=== PATIENT | female | born 1980 ===

== ENCOUNTER 2017-09-23 12:30 | Inpatient (IN) | payer OTHER ==
[~2017-09-23] VITALS: Ht 162.6 cm; Wt 76.2 kg
[2017-09-26] MEDS ORDERED: PERCOCET 5-3251 EACH PO (12:25)
[2017-09-26] MEDS ORDERED: AMOX1TAB12 PO (12:25)
[2017-09-26] MEDS ORDERED: COLACE100 MG PO (12:25)
[2017-09-26] MEDS ORDERED: NEURONTIN800 MG PO (12:25)
[2017-09-26] MEDS ORDERED: CLONAZEPAM1 MG PO (12:25)
== END 2017-09-27 14:47 | disposition home or self-care (01) | DRG 455 ==
LOC: O/R 09-26 05:45 → SURG 09-26 05:45 → SURH 09-26 12:30 → SURG 09-26 12:49 → SURH 09-26 16:00 → SURG 09-27 14:47
PROVIDERS: Orthopaedic Surgery Orthopaedic Surgery of the Spine
PROC: 0SG1071 Fusion of 2 or more Lumbar Vertebral Joints with Autologous Tissue Substitute, Posterior Approach, Posterior Column, Open Approach (ICD-10-PCS; 2017-09-26)
PROC: 0ST20ZZ Resection of Lumbar Vertebral Disc, Open Approach (ICD-10-PCS; 2017-09-26)
PROC: 0SG10AJ Fusion of 2 or more Lumbar Vertebral Joints with Interbody Fusion Device, Posterior Approach, Anterior Column, Open Approach (ICD-10-PCS; 2017-09-26)
PROC: 07DS3ZZ Extraction of Vertebral Bone Marrow, Percutaneous Approach (ICD-10-PCS; 2017-09-26)
PROC: 0SG10A0 Fusion of 2 or more Lumbar Vertebral Joints with Interbody Fusion Device, Anterior Approach, Anterior Column, Open Approach (ICD-10-PCS; principal; 2017-09-26 16:00)
DX: M51.16 Intervertebral disc disorders with radiculopathy, lumbar region (principal); M47.26 Other spondylosis with radiculopathy, lumbar region; M48.061 Spinal stenosis, lumbar region without neurogenic claudication

== ENCOUNTER 2018-03-19 08:29 | Outpatient (CLI) | payer OTHER ==
[~2018-03-19 08:29] MED LIST: AMOX1TAB12 PO; CLONAZEPAM1 MG PO; COLACE100 MG PO; NEURONTIN800 MG PO; PERCOCET 5-3251 EACH PO
== END 2018-03-19 08:32 | disposition home or self-care (01) ==
LOC: RAD 08:29
DX: M51.36 Other intervertebral disc degeneration, lumbar region (principal); Z98.1 Arthrodesis status